=== PATIENT | female | born 1975 | race Caucasian/White ===

== ENCOUNTER 2016-07-28 07:32 | Emergency (ER) | payer OTHER ==
[~2016-07-28] VITALS: Ht 157.5 cm; Wt 68.0 kg
[~2016-07-28 07:32] MED LIST: ALBU18HF; MULT-552 PO; VITAMINS DAILY
[2016-07-28 07:39] VITALS: Ht 157.5 cm; Wt 68.0 kg
[2016-07-28] MEDS ORDERED: LORAZEPAM 1 MG TAB PO ONE (08:00)
[2016-07-28] MEDS ORDERED: ACETAMINOPHEN 500 MG TAB PO STA (08:23)
[2016-07-28] MEDS ORDERED: ACET500C5 PO (08:25)
--- NOTE | 2016-07-28 08:33 | ERD ---
ER Documentation Chief Complaint Date/Time DATE: 07/28/16 TIME: 08:30 Chief Complaint anxiety, tearful at intake, hyperventilating, said has sob,cp HPI Patient with no significant past medical history presents the ED complaining of nervousness, being tearful, hyperventilation, shortness of breath, chest pain, left arm numbness and tingling that started 1 hour ago while driving. Reports that she has a slight headache but denies any head injuries. Describes the pain as aching and rates it a 3 out of 10. Denies any loss of consciousness. Denies any fever, cough, wheezing, abdominal pain, nausea, vomiting, diarrhea, dyspnea on exertion, orthopnea. Denies any recent traveling. Denies any leg swelling. Denies any smoking, alcohol use, drug use. ROS All systems reviewed and are negative except as per history of present illness. Medications Home Meds Active Scripts Acetaminophen* (Tylophen*) 500 Mg Capsule, 1 CAP PO Q6H Y for PAIN AND OR ELEVATED TEMP, #20 CAP Prov:VALENCIA MEJIA PA-C 07/28/16 Reported Medications [Vitamins Daily] No Conflict Check 05/29/15 Albuterol Sulfate* (Ventolin HFA*) 18 Gm Hfa.aer.ad, #18 05/29/15 Multivitamins* (Once Daily*) 1 Tab Tablet, 1 TAB PO DAILY, TAB 05/28/15 Allergies Allergies: Coded Allergies: No Known Allergy (Verified , 07/28/16) PMhx/Soc History of Surgery: Yes (BUNIONECTOMY RT FOOT, RT BREAST SURGERY,LT ARM CYST REMOVAL) Anesthesia Reaction: No Hx Neurological Disorder: No Hx Respiratory Disorders: Yes (ASTHMA) Hx Cardiac Disorders: No Hx Psychiatric Problems: No Hx Miscellaneous Medical Probl: Yes (anxiety) Hx Alcohol Use: Yes (OCCASIONAL) Hx Substance Use: No Hx Tobacco Use: No Physical Exam Vitals Vital Signs Date Time Temp Pulse Resp B/P Pulse Ox O2 Delivery O2 Flow Rate FiO2 07/28/16 07:39 98.2 86 18 110/76 99 Physical Exam Const: Cib-suy-muhgknzwc, well-nourished. In no acute distress. Head: Atraumatic, normocephalic Eyes: Normal Conjunctiva without injection. No purulent discharge. PERRL. EOMI ENT: Normal external ear. Ear canal without erythema. Tympanic membrane pearly andrade without effusion or bulging. Nasal canal clear with normal turbinates. Moist oropharynx without tonsillar exudates. Non-erythematous pharynx. Uvula midline. No drooling. No trismus. Neck: Full range of motion. No meningismus. No cervical lymphadenopathy. Resp: Clear to auscultation bilaterally. No wheezing, rhonchi, rales, or crackles. No accessory muscle use. No retractions. Cardio: Regular rate and rhythm. No murmurs, rubs or gallops. Chest: Tenderness palpation of the anterior chest. It is reproducible. Skin: No petechiae or rashes Back: No midline tenderness. No CVA tenderness. Ext: No cyanosis, or edema. Neur: Awake and alert. Psych: Normal Mood and Affect Results 24 hrs Current Medications Medications (Trade) Dose Ordered Sig/Bryce Route PRN Reason Start Time Stop Time Status Last Admin Dose Admin Lorazepam (Ativan) 1 mg ONCE ONCE PO 07/28/16 08:00 07/28/16 08:01 DC 07/28/16 08:01 Acetaminophen (Tylenol Tab) 500 mg ONCE STAT PO 07/28/16 08:23 07/28/16 08:25 DC 07/28/16 08:58 Procedures/MDM 31-year-old female patient with no significant past medical history presents the ED complaining of being tearful, hyperventilation, shortness of breath, chest pain, left arm numbness and tingling that started 1 hour ago. Patient is afebrile and nontoxic-appearing. Patient reports that she is stressed because her father is in the hospital. Patient symptoms are likely due to anxiety. Patient was given 1 mg Ativan and 500 mg Tylenol here in the ED with improvement of her symptoms. An EKG was ordered to further evaluate patient. EKG reviewed and interpreted by Dr. Charles Rate/Rhythm: [88 bpm, Normal Sinus Rhythm] No ectopy, no ST elevations, normal axis. QRS, ST, T-waves: [No changes consistent w/ acute ischemia] Impression: [No evidence of ischemia or arrhythmia] Patient likely has possible anxiety. Low suspicion for acute myocardial infarction, pneumothorax, pneumonia, cardiac tamponade, pulmonary embolism, AAA , aortic dissection, Boerhaave's syndrome, cardiac dysrhythmias,meningitis, intracranial bleed, seizure, stroke, TIA or other emergent conditions. Discharge medications: Tylenol Follow up with primary care physician in 1-2 days. Instructed patient to return to the ED sooner for any worsening symptoms. Patient's questions were answered. Patient understood and agreed with discharge plan. Patient discharged stable. Departure Diagnosis: Primary Impression: Anxiety Condition: Stable Patient Instructions: Your Body's Response to Anxiety, Stress Relief: Activities, Stress Relief: Relaxation, Anxiety Reaction Referrals: [facility] YOU HAVE RECEIVED A MEDICAL SCREENING EXAM AND THE RESULTS INDICATE THAT YOU DO NOT HAVE A CONDITION THAT REQUIRES URGENT TREATMENT IN THE EMERGENCY DEPARTMENT. FURTHER EVALUATION AND TREATMENT OF YOUR CONDITION CAN WAIT UNTIL YOU ARE SEEN IN YOUR DOCTORS OFFICE WITHIN THE NEXT 1-2 DAYS. IT IS YOUR RESPONSIBILITY TO MAKE AN APPOINTMENT FOR FOLOW-UP CARE. IF YOU HAVE A PRIMARY DOCTOR --you should call your primary doctor and schedule an appointment IF YOU DO NOT HAVE A PRIMARY DOCTOR YOU CAN CALL OUR PHYSICIAN REFERRAL HOTLINE AT IF YOU CAN NOT AFFORD TO SEE A PHYSICIAN YOU CAN CHOSE FROM THE FOLLOWING [facility] [address] [facility]. [facility] [address] [facility]. [facility] [address] [facility] [facility] [address] [facility] [address] [facility]. [facility]. [address] [facility]. [facility] YOU HAVE RECEIVED A MEDICAL SCREENING EXAM AND THE RESULTS INDICATE THAT YOU DO NOT HAVE A CONDITION THAT REQUIRES URGENT TREATMENT IN THE EMERGENCY DEPARTMENT. FURTHER EVALUATION AND TREATMENT OF YOUR CONDITION CAN WAIT UNTIL YOU ARE SEEN IN YOUR DOCTORS OFFICE WITHIN THE NEXT 1-2 DAYS. IT IS YOUR RESPONSIBILITY TO MAKE AN APPOINTMENT FOR FOLOW-UP CARE. IF YOU HAVE A PRIMARY DOCTOR --you should call your primary doctor and schedule and appointment IF YOU DO NOT HAVE A PRIMARY DOCTOR YOU CAN CALL OUR PHYSICIAN REFERRAL HOTLINE AT . IF YOU CAN NOT AFFORD TO SEE A PHYSICIAN YOU CAN CHOSE FROM THE FOLLOWING [facility] INSTITUTIONS[facility] [address] [place] [address] [facility] [address] [place] [address] [facility] [address] [place] [address] [facility]RGENT [facility]CIALTIES Additional Instructions: FOLLOW UP WITH YOUR PRIMARY CARE PHYSICIAN tomorrow for further evaluation and treatment. Return to this facility if you are not improving as expected. VALENCIA MEJIA PA-C Jul 28, 2016 08:33 VALENCIA MEJIA PA-C Jul 28, 2016 08:33
== END 2016-07-28 08:59 | disposition home or self-care (01) ==
LOC: FTE 07:32
DX: F41.9 Anxiety disorder, unspecified (principal); J45.909 Unspecified asthma, uncomplicated; R06.02 Shortness of breath
CPT/HCPCS: 93005; Z7502; Z7610